=== PATIENT | male | born 1965 | race Caucasian/White ===

== ENCOUNTER 2017-01-24 18:06 | Inpatient (IN) | payer BC, OTHER ==
[~2017-01-24] VITALS: Ht 175.3 cm; Wt 77.2 kg
--- NOTE | ~2017-01-24 | EKG ---
[address] [place] [address] ELECTROCARDIOGRAM REPORT Name: STANLEY LINROBBY Sutton Room #: 312-P [facility]..#: [id number] Admission: 01/24/17 Attend Phys: Vladimir Vilchis MD Discharge: 01/25/17 Date of : 63 Report #: [id number] THIS REPORT FOR: //name// [facility] ED Test Date: 2017-01-24 Test Time: 18:51:40 Pat Name: ISAIAH LIN Department: Room: [facility] Gender: M Inventory Checker: Shaggy MERIDA : 1965 Requested By: Valeri Alberto Order Number: [id number] MD: Chandrakant Gillis Measurements Intervals [place] Rate: 83 P: 55 PA: 184 QRS: 41 QRSD: 97 T: 57 QT: 372 QTc: 437 Interpretive Statements Sinus rhythm No significant abnormality No previous ECG available for comparison Electronically Signed On 01-26-2017 8:22:14 CDT by Chandrakant Gillis [email or web address] <ELECTRONICALLY SIGNED> By: Chandrakant Gillis MD, [facility] 01/26/17 0822 1851 50 Chandrakant Gillis MD, FACC /EPI
[2017-01-24 18:07] VITALS: BP 164/100
[2017-01-24 18:52] LABS: URINE BILIRUBIN NEGATIVE (Negative); URINE BLOOD NEGATIVE (Negative); URINE COLOR YELLOW; URINE GLUCOSE-RANDOM* NEGATIVE (Negative); URINE KETONES 1+ (Negative); URINE NITRITE NEGATIVE (Negative); URINE PROTEIN (DIPSTICK) NEGATIVE (Negative); URINE SPECIFIC GRAVITY 1.015 (1.003-1.035); URINE UROBILINOGEN 0.2 E.U./dl (0.2-1.0)
[2017-01-24 18:53] LABS: ABSOLUTE NEUTROPHILS 6.3 thou/uL (1.4-8.2); BASOPHILS 0.3 % (0.0-2.0); HEMATOCRIT 45.7 % (42.0-52.0); HEMOGLOBIN 15.7 gm/dL (14.0-18.0); LYMPHOCYTES 12.6 % (24.0-44.0); MANUAL DIFF NO; MCH 31.4 pg (26.0-34.0); MCHC 34.3 g/dL (28.0-37.0); MCV 91.5 fL (80.0-100.0); MONOCYTES 4.3 % (1.0-8.0); PLATELET COUNT 196 thou/uL (150-400); POLYS 82.8 % (36.0-66.0); RDW 12.6 % (10.5-14.5); WBC 7.6 thou/uL (4.0-11.0)
[2017-01-24 18:55] LABS: CALCIUM 9.1 mg/dL (8.5-10.1); CREATININE 1.1 mg/dL (0.7-1.3); POTASSIUM 3.8 mmol/L (3.5-5.1)
[2017-01-24 19:00] LABS: ALBUMIN 4.4 g/dL (3.4-5.0); DIRECT BILIRUBIN 0.1 mg/dL (<0.1-0.3); TOTAL BILIRUBIN 0.6 mg/dL (<0.1-1.0); TOTAL PROTEIN 7.8 g/dL (6.4-8.2)
[2017-01-24 19:01] LABS: AMP/METHAMP Negative (Negative); BARBITURATES Negative (Negative); BENZODIAZEPINES Negative (Negative); COCAINE Negative (Negative); METHADONE Negative (Negative); OPIATES Negative (Negative); PCP Negative (Negative); THC Negative (Negative)
[2017-01-24 20:27] VITALS: BP 163/91
[2017-01-24 20:30] VITALS: BP 145/92
[2017-01-25] VITALS: BP 137/93
[2017-01-25 04:20] VITALS: BP 140/87
[2017-01-25 05:57] LABS: HEMATOCRIT 42.8 % (42.0-52.0); MCH 31.2 pg (26.0-34.0); MCHC 34.9 g/dL (28.0-37.0); MCV 89.3 fL (80.0-100.0); RBC 4.8 mil/uL (4.50-6.00); RDW 12.5 % (10.5-14.5); WBC 6.9 thou/uL (4.0-11.0)
[2017-01-25 06:15] LABS: ANION GAP 7 mmol/L (7-16); BUN 14 mg/dL (7-18); CALCIUM 9.1 mg/dL (8.5-10.1); CHLORIDE 107 mmol/L (98-107); CHOLESTEROL 203 mg/dL (<200); CO2 27 mmol/L (21-32); CREATININE 0.9 mg/dL (0.7-1.3); GLUCOSE 94 mg/dL (74-106); HDL CHOLESTEROL 80 mg/dL (>40); LDL CHOLESTEROL 108 mg/dL (<100); POTASSIUM 4.3 mmol/L (3.5-5.1); SODIUM 141 mmol/L (136-145); TC:HDL 2.5 Ratio (Not establshd); TRIGLYCERIDE 77 mg/dL (<150); VLDL 15 mg/dL (<40)
[2017-01-25 07:23] VITALS: BP 143/89
[2017-01-25 13:23] LABS: FOLIC ACID 28.9 ng/mL (8.6-58.9)
[2017-01-25] MEDS ORDERED: AMLODIPINE BESYL5 M1 PO (14:08)
[2017-01-25] MEDS ORDERED: ASPIR 8181 MG PO (14:08)
[2017-01-25] MEDS ORDERED: LIPITOR10 MG PO (14:08)
[2017-01-25 14:11] VITALS: BP 143/89
[2017-01-25 18:06] LABS: FREE T4 1.2 ng/dL (0.82-1.77)
[2017-01-27 06:10] LABS: GLYCOHEMOGLOBIN (HGB A1C) 4.7 % (4.8-5.6)
[2017-01-28 14:13] LABS: ALPHA TOCOPHEROL 10.4 mg/L (5.3-17.5)
== END 2017-01-25 15:03 | disposition home or self-care (01) | DRG 72 ==
LOC: ER 18:06 → EROBS 20:04 → 3N 20:29
PROVIDERS: Emergency Medicine; Nurse Practitioner Family; Psychiatry & Neurology Neurology
DX: G45.4 Transient global amnesia (principal); E78.5 Hyperlipidemia, unspecified; I10 Essential (primary) hypertension; Z82.3 Family history of stroke; Z72.89 Other problems related to lifestyle
CPT/HCPCS: 10096

== ENCOUNTER → 2017-07-29 | Outpatient (CLI) | payer OTHER ==
[~2017-07-29] MED LIST: AMLODIPINE BESYL5 M1 PO; ASPIR 8181 MG PO; LIPITOR10 MG PO
== END ==
LOC: CAT 07:58
DX: Z13.6 Encounter for screening for cardiovascular disorders (principal)